=== PATIENT | male | born 1945 | race Hispanic/Latino ===

== ENCOUNTER 2021-02-12 19:54 | Emergency (ER) | payer MEDICARE, OTHER ==
[~2021-02-12] VITALS: Ht 162.6 cm; Wt 65.8 kg
[2021-02-12] MEDS ORDERED: COLACE100 MG PO (20:31)
== END 2021-02-12 21:46 | disposition home or self-care (01) ==
LOC: ER 20:06
DX: K59.00 Constipation, unspecified (principal); E11.9 Type 2 diabetes mellitus without complications; E78.5 Hyperlipidemia, unspecified
CPT/HCPCS: 74018; 99284